=== PATIENT | male | born 1955 | race American Indian/Alaskan Native ===

== ENCOUNTER 2018-10-26 01:43 | Inpatient (IN) | payer MEDICAID ==
[~2018-10-26] VITALS: Ht 185.4 cm; Wt 68.1 kg
[2018-10-26] MEDS ORDERED: aspirin 81mg tab.chew PO ONE (01:50)
[2018-10-26 02:08] LABS: BASOPHILS # (AUTO) 0.1 X10'3 (0-0.2); BASOPHILS % (AUTO) 0.7 % (0-1); EOSINOPHILS # (AUTO) 0.1 X10'3 (0-0.9); EOSINOPHILS % (AUTO) 0.7 % (0-6); HEMATOCRIT 40.1 % (42.0-52.0); HEMOGLOBIN 13.2 g/dl (14.0-17.9); LYMPHOCYTES # (AUTO) 1.2 X10'3 (1.1-4.8); LYMPHOCYTES % (AUTO) 8.7 % (21-51); MEAN PLATELET VOLUME 9.3 FL (7.4-10.4); MONOCYTES # (AUTO) 0.6 X10'3 (0-0.9); MONOCYTES % (AUTO) 4.7 % (2-12); NEUTROPHILS # (AUTO) 11.6 X10'3 (1.8-7.7); NEUTROPHILS % (AUTO) 85.2 % (42-75); PLATELET COUNT 193 X10'3 (140-440); RED BLOOD COUNT 4.27 X10'6 (4.70-6.10); RED CELL DISTRIBUTION WIDTH 16.2 % (11.5-14.5); WHITE BLOOD COUNT 13.6 X10'3 (4.5-11.0)
[2018-10-26] MEDS ORDERED: ondansetron/PF 4mg/2ml inj IV ONE (02:10)
[2018-10-26] MEDS ORDERED: mag hydrox/Alum hydrox/simeth 30ml oral suspension PO ONE (02:10)
[2018-10-26] MEDS ORDERED: LIDOcaine Viscous 15ml cup PO ONE (02:10)
[2018-10-26] MEDS ORDERED: morphine 4 MG/ML inj SYRINge IV ONE ×2 (02:10→03:30)
[2018-10-26 02:23] LABS: GLUCOSE 162 MG/DL (70-104); PARTIAL THROMBOPLASTIN TIME 22 SECONDS (22-32); SODIUM 146 MMOL/L (135-145)
[2018-10-26 02:24] LABS: ALANINE AMINOTRANSFERASE 99 U/L (12-78); ALKALINE PHOSPHATASE 111 IU/L (46-116); ANION GAP 9 (8-16); ASPARTATE AMINO TRANSFERASE 46 U/L (10-37); BILIRUBIN,TOTAL 0.3 MG/DL (0.1-1.0); BLOOD UREA NITROGEN 27 MG/DL (7-18); BUN/CREATININE RATIO 15.3 (5.4-32.0); CALCIUM 8.3 MG/DL (8.5-10.1); CHLORIDE 107 MMOL/L (99-107); CREATININE 1.77 MG/DL (0.60-1.10); POTASSIUM 3.5 MMOL/L (3.5-5.1); TOTAL CARBON DIOXIDE 29.6 MMOL/L (24-32); TOTAL PROTEIN 6.1 G/DL (6.4-8.2); eGFR 39 ML/MIN
[2018-10-26] MEDS ORDERED: iohexol 350MG/ML 100ml bottle IV ONE ×2 (02:40→16:25)
[2018-10-26 02:45] LABS: CLARITY,URINE CLEAR (Clear); COLOR,URINE YELLOW (Yellow); GLUCOSE, URINE NEGATIVE (Neg); KETONES,URINE NEGATIVE (Neg); LEUKOCYTE ESTERASE ,URINE NEGATIVE (Neg); NITRITES, URINE NEGATIVE (Neg); OCCULT BLOOD,URINE NEGATIVE (Neg); PROTEIN,URINE 100 mg/dl (Neg)
[2018-10-26 02:49] LABS: UA COLLECTION TYPE CLN CATCH MIDSTREAM
[2018-10-26 02:51] LABS: BACTERIA,URINE NONE SEEN /HPF (Neg); HYALINE CASTS 0-3 /LPF (NEGATIVE); MUCUS STRANDS FEW /LPF (Neg); RBC,URINE NONE SEEN /HPF (0-2); SQUAMOUS EPITHELIAL CELL,UR NONE SEEN /LPF (FEW); WBC,URINE NONE SEEN /HPF (0-4)
[2018-10-26 02:59] LABS: URINE AMPHETAMINE SCREEN NEGATIVE (Neg); URINE BARBITUATE SCREEN NEGATIVE (Neg); URINE BENZODIAZEPINES SCREEN NEGATIVE (Neg); URINE CANNABINOID SCREEN POSITIVE (Neg); URINE COCAINE SCREEN NEGATIVE (Neg); URINE METHADONE SCREEN NEGATIVE (Neg); URINE OPIATE SCREEN NEGATIVE (Neg); URINE PHENCYCLIDINE SCREEN NEGATIVE (Neg)
[2018-10-26] MEDS ORDERED: heparin 10,000 units/1 ML INJ IV ONE (03:10)
[2018-10-26] MEDS: heparin 25,000 UNIT/250ml bag 250 ML IV SCH ×3 (03:27→18:03)
[2018-10-26] MEDS ORDERED: CefTRIAXone/D5W-Rocephin 1gm 50 ML IV ONE (04:55)
[2018-10-26] MEDS ORDERED: azithromycin/NS 500mg/250ml 250 ML IV ONE (04:55)
--- NOTE | 2018-10-26 05:00 | NUR ---
PT RESTING COMFORTABLY IN BED IV PATENT NO DISTRESS CURRENTLY NO C/O OF CHEST PAIN
[2018-10-26] MEDS ORDERED: pantoprazole 40 MG vial IV ONE (05:15)
[2018-10-26] MEDS ORDERED: magnesium 4gm in 100ml NS 100 ML IV PRN (05:30)
[2018-10-26] MEDS ORDERED: magnesium Cl slow-release 64mg tablet PO PRN (05:30)
[2018-10-26] MEDS ORDERED: potassium Cl 20 mEq SR tablet PO PRN ×2 (05:30)
[2018-10-26] MEDS ORDERED: ondansetron/PF 4mg/2ml inj IV PRN (05:30)
[2018-10-26] MEDS ORDERED: magnesium hydroxide 30ml (MOM) UD suspension PO PRN (05:30)
[2018-10-26] MEDS ORDERED: potassium CL 10mEq/100ml bag 100 ML IV PRN ×2 (05:30)
[2018-10-26] MEDS ORDERED: acetaminophen 325mg tablet PO PRN ×2 (05:30)
[2018-10-26] MEDS ORDERED: mag hydrox/Alum hydrox/simeth 30ml oral suspension PO PRN (05:30)
[2018-10-26] MEDS ORDERED: magnesium 2GM in 50ml NS 50 ML IV PRN (05:30)
[2018-10-26] MEDS ORDERED: nitroGLYCERIN 0.4mg SUBLingual tab SL PRN (05:30)
[2018-10-26 06:00] VITALS: BP 151/101
--- NOTE | 2018-10-26 06:00 | NUR ---
Patient was admitted to PCU at 0555 and noc shift nurse was not able given opportunity to get report and give shift change report. Took over care of patient at 0600 and will go through chart. patient is stable and has no complaints.
--- NOTE | 2018-10-26 06:00 | NUR ---
DR GRAY PAGGED FOR TROPONIN LEVEL OF 2.18
--- NOTE | 2018-10-26 06:12 | NUR ---
Received report from INGRID Marcos. Per DELIVERY CONSULTANTINGRID egan, patient already en route to PCU at 0555. Patient alert and oriented to person, place and time upon arrival to floor. INGRID Almeida escorted patient up to floor on [facility] with patient chart and belongings. Transferred Heparin drip infusing at 800 units/hr per provider order. Stable at this time.
--- NOTE | 2018-10-26 06:24 | NUR ---
Problems reprioritized. Patient report given, questions answered & plan of care reviewed with INGRID Gomez.
[2018-10-26] MEDS ORDERED: FURO20TA4 PO (06:33)
[2018-10-26] MEDS ORDERED: LISI-604 PO (06:33)
[2018-10-26] MEDS ORDERED: ATOR-2 PO (06:33)
[2018-10-26 07:38] LABS: CHOL/HDL RATIO 3.1 (0.00-4.99); CHOLESTEROL 112 MG/DL (0-200); HDL CHOLESTEROL 36 MG/DL (35-60); LDL CHOLESTEROL 67 MG/DL (50-100); TRIGLYCERIDES 30 MG/DL (20-135)
[2018-10-26] MEDS ORDERED: atorvastatin 20mg tablet PO SCH (08:00)
[2018-10-26] MEDS: K and/or MAG REPLACEMENT MC SCH (08:00)
[2018-10-26] MEDS: clopidogrel 75mg tablet PO SCH (08:08)
[2018-10-26] MEDS: carVEDilol 3.125mg tablet PO SCH ×2 (08:08→19:48)
--- NOTE | 2018-10-26 08:10 | NUR ---
Lab reported critical trop of 7.46. Notified Dr Diaz and he asked me to let Lucita Kennedy know. Notified Lucita Kennedy, and there is no change in orders; patient is currently refusing company laborer intervention.
[2018-10-26] MEDS: morphine 2 MG/ML inj. syringe IV PRN (09:49)
--- NOTE | 2018-10-26 10:00 | NUR ---
Paged Dr Tavarez PAGER ID: [phone] MESSAGE: Patricia [phone]. RE Drake Souza [id number]. Correction from prior page I sent, patient did have a 13 beat run of V-tach. Also wanted to clarify parameters about when to order EKG on patient regarding any further chest pain? Thank you
--- NOTE | 2018-10-26 10:24 | NUR ---
Paged Lucita Kennedy PAGER ID: [phone] MESSAGE: Patricia romero [phone]. RE Drake Souza [id number]. Patient is open to cath procedures now and would like to speak with you please
[2018-10-26] MEDS: heparin 10,000 units/1 ML INJ IV PRN (10:39)
--- NOTE | 2018-10-26 10:57 | NUR ---
Patients chest pain has improved from admit. Monitoring patient very closely for any increasing distress
[2018-10-26 11:00] VITALS: BP 91/71
--- NOTE | 2018-10-26 11:00 | NUR ---
Patient was stating that he is "miserable" and is afraid about the healing process regarding laborer tanbark interventions, which is why he is hesitant. I reminded him that he spoke with Lucita Kennedy NP about laborer tanbark, and asked him if he had further questions and wanted to speak to her again and he said yes. Lucita came back and spoke to patient again and went over the risks and benefits of the interventions. Patient said he wanted to go through with it. Waiting for official time and orders from Lucita once she speaks to Dr Chung, but she said it will most likely be early evening tonight and that the patient can have lunch and then be NPO after.
[2018-10-26 15:00] VITALS: BP 124/96
--- NOTE | 2018-10-26 15:13 | NUR ---
Paged Dr Tavarez to notify of critical trop PAGER ID: [phone] MESSAGE: Patricia romero [phone]. Candido Arzate. [id number]. Critical trop reported of 55.53 Addendum: 10/26/18 at 1550 by Patricia Zavala RN No new orders, Dr Tavarez aware that patient is going to geophysical laboratory chief at 1700
[2018-10-26] MEDS ORDERED: midazolam 2 mg/2 ml injection ONE (16:24)
[2018-10-26] MEDS ORDERED: fentaNYL/PF 50MCG/1 ML 2ML syringe ONE (16:25)
[2018-10-26] MEDS ORDERED: LIDOcaine 1% (10mg/ml)w/preservative injection 20ml MDV ONE (16:25)
--- NOTE | 2018-10-26 16:43 | NUR ---
Patient left for [employer] Tester
--- NOTE | 2018-10-26 17:01 | NUR ---
Paged Dr Tavarez PAGER ID: [phone] MESSAGE: Patricia nick [phone]. RE Drake Souza [id number]. 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
--- NOTE | 2018-10-26 18:33 | NUR ---
Problems reprioritized. Patient report given, questions answered & plan of care reviewed with Genie QUINTERO.
[2018-10-26 19:00] VITALS: BP 122/97
[2018-10-26] MEDS: furosemide 20 MG/2 ML vial IV SCH (19:48)
[2018-10-26] MEDS: lisinopril 5mg tablet PO SCH (21:09)
[2018-10-26 23:00] VITALS: BP 115/88
[2018-10-27 01:04] LABS: BASOPHILS # (AUTO) 0.1 X10'3 (0-0.2); BASOPHILS % (AUTO) 1.4 % (0-1); EOSINOPHILS # (AUTO) 0.1 X10'3 (0-0.9); EOSINOPHILS % (AUTO) 0.7 % (0-6); HEMATOCRIT 36.4 % (42.0-52.0); HEMOGLOBIN 12.2 g/dl (14.0-17.9); LYMPHOCYTES # (AUTO) 2.1 X10'3 (1.1-4.8); LYMPHOCYTES % (AUTO) 24.3 % (21-51); MEAN CORPUSCULAR HEMOGLOBIN 30.9 PG (27.0-31.0); MEAN CORPUSCULAR HGB CONC 33.4 g/dL (33.0-36.5); MEAN CORPUSCULAR VOLUME 92.5 FL (78-98); MEAN PLATELET VOLUME 9.3 FL (7.4-10.4); MONOCYTES # (AUTO) 0.8 X10'3 (0-0.9); MONOCYTES % (AUTO) 9.7 % (2-12); NEUTROPHILS # (AUTO) 5.6 X10'3 (1.8-7.7); NEUTROPHILS % (AUTO) 63.9 % (42-75); PLATELET COUNT 242 X10'3 (140-440); RED BLOOD COUNT 3.94 X10'6 (4.70-6.10); RED CELL DISTRIBUTION WIDTH 15.6 % (11.5-14.5); WHITE BLOOD COUNT 8.7 X10'3 (4.5-11.0)
[2018-10-27 01:13] LABS: ALBUMIN 2.5 G/DL (3.4-5.0); ANION GAP 6 (8-16); BLOOD UREA NITROGEN 27 MG/DL (7-18); BUN/CREATININE RATIO 16.8 (5.4-32.0); CALCIUM 8.3 MG/DL (8.5-10.1); CHLORIDE 104 MMOL/L (99-107); CREATININE 1.61 MG/DL (0.60-1.10); GLUCOSE 117 MG/DL (70-104); MAGNESIUM 2.1 MG/DL (1.5-2.4); POTASSIUM 3.9 MMOL/L (3.5-5.1); SODIUM 139 MMOL/L (135-145); TOTAL CARBON DIOXIDE 28.7 MMOL/L (24-32); eGFR 43 ML/MIN
[2018-10-27] MEDS: morphine 2 MG/ML inj. syringe IV PRN ×2 (02:43→16:38)
[2018-10-27 03:00] VITALS: BP 130/59
--- NOTE | 2018-10-27 06:00 | NUR ---
Patient in room PCU 3023. I have received report from INGRID Prescott and had the opportunity to ask questions and assume patient care. Patient is currently resting in bed, bed locked and low, call light in reach, no acute distress, will continue to monitor.
[2018-10-27] MEDS: heparin 10,000 units/1 ML INJ IV PRN (07:14)
[2018-10-27] MEDS: heparin 25,000 UNIT/250ml bag 250 ML IV SCH (07:18)
[2018-10-27] MEDS ORDERED: CefTRIAXone 2gm/D5W 50ml 50 ML IV SCH (08:00)
[2018-10-27] MEDS ORDERED: azithromycin/NS 500mg/250ml 250 ML IV SCH (08:00)
[2018-10-27] MEDS: K and/or MAG REPLACEMENT MC SCH (08:00)
[2018-10-27] MEDS: furosemide 20 MG/2 ML vial IV SCH ×2 (08:19→19:16)
[2018-10-27] MEDS: spironolactone 25 MG tablet PO SCH (08:20)
[2018-10-27] MEDS: carVEDilol 3.125mg tablet PO SCH ×2 (08:20→19:15)
[2018-10-27] MEDS: clopidogrel 75mg tablet PO SCH (08:20)
[2018-10-27] MEDS: aspirin 81mg tab.chew PO SCH (08:20)
[2018-10-27] MEDS: atorvastatin 20mg tablet PO SCH (08:21)
[2018-10-27 11:00] VITALS: BP 114/82
[2018-10-27 15:39] VITALS: BP 143/101
--- NOTE | 2018-10-27 16:31 | NUR ---
PAGER ID: [phone] MESSAGE: INGRID Jane, ext [phone], [phone], Souza, Patient is c/o feeling like he can't breathe and reports a "dull ache" starting in his chest. He is refusing to wear his life vest. He is now on 2L NC to maintain SPO2>90%. desats to upper 80s w/o it.
[2018-10-27 18:00] VITALS: BP 110/79
--- NOTE | 2018-10-27 18:15 | NUR ---
Patient in room PCU 3023. I have received report from Lucinda QUINTERO and had the opportunity to ask questions and assume patient care.
--- NOTE | 2018-10-27 18:28 | NUR ---
Problems reprioritized. Patient report given, questions answered & plan of care reviewed with INGRID Meredith, Patient is currently resting in bed, bed locked and low, call light in reach, stable at shift change.
[2018-10-27] MEDS: lisinopril 5mg tablet PO SCH (20:51)
[2018-10-27 22:00] VITALS: BP 101/48
[2018-10-28] VITALS (7 sets, daily range): BP systolic 114–136; BP diastolic 89–103
[2018-10-28] MEDS: morphine 2 MG/ML inj. syringe IV PRN ×4 (03:14→22:51)
[2018-10-28 05:13] LABS: BASOPHILS % (AUTO) 0.5 % (0-1); EOSINOPHILS % (AUTO) 0.1 % (0-6); HEMATOCRIT 37.4 % (42.0-52.0); HEMOGLOBIN 12.9 g/dl (14.0-17.9); LYMPHOCYTES # (AUTO) 1.3 X10'3 (1.1-4.8); LYMPHOCYTES % (AUTO) 17.5 % (21-51); MEAN CORPUSCULAR HGB CONC 34.4 g/dL (33.0-36.5); MEAN PLATELET VOLUME 9.8 FL (7.4-10.4); MONOCYTES # (AUTO) 0.5 X10'3 (0-0.9); MONOCYTES % (AUTO) 6.8 % (2-12); NEUTROPHILS # (AUTO) 5.5 X10'3 (1.8-7.7); NEUTROPHILS % (AUTO) 75.1 % (42-75); PLATELET COUNT 237 X10'3 (140-440); RED BLOOD COUNT 4.02 X10'6 (4.70-6.10); RED CELL DISTRIBUTION WIDTH 16.1 % (11.5-14.5); WHITE BLOOD COUNT 7.4 X10'3 (4.5-11.0)
[2018-10-28 05:19] LABS: ALBUMIN 2.5 G/DL (3.4-5.0); ANION GAP 8 (8-16); BLOOD UREA NITROGEN 34 MG/DL (7-18); BUN/CREATININE RATIO 21.8 (5.4-32.0); CALCIUM 8.1 MG/DL (8.5-10.1); CHLORIDE 103 MMOL/L (99-107); CREATININE 1.56 MG/DL (0.60-1.10); GLUCOSE 121 MG/DL (70-104); MAGNESIUM 2.1 MG/DL (1.5-2.4); SODIUM 138 MMOL/L (135-145); TOTAL CARBON DIOXIDE 27.2 MMOL/L (24-32); eGFR 45 ML/MIN
--- NOTE | 2018-10-28 06:34 | NUR ---
Patient in room PCU 3023. I have received report from INGRID Meredith and had the opportunity to ask questions and assume patient care. Patient c/o of pain and shortness of breath, lung auscultation clear throughout, VSS, patient requesting morphine, not available for another hour. Patient resting in bed, bed locked and low, call light in reach, will continue to monitor.
--- NOTE | 2018-10-28 06:35 | NUR ---
Problems reprioritized. Patient report given, questions answered & plan of care reviewed with Carson Fragoso.
[2018-10-28] MEDS: K and/or MAG REPLACEMENT MC SCH (08:00)
[2018-10-28] MEDS ORDERED: chlordiazePOXIDE 5mg capsule PO PRN (08:45)
[2018-10-28] MEDS: spironolactone 25 MG tablet PO SCH (08:46)
[2018-10-28] MEDS: furosemide 20 MG/2 ML vial IV SCH ×2 (08:46→20:48)
[2018-10-28] MEDS: aspirin 81mg tab.chew PO SCH (08:47)
[2018-10-28] MEDS: carVEDilol 3.125mg tablet PO SCH ×2 (08:47→20:48)
[2018-10-28] MEDS: atorvastatin 20mg tablet PO SCH (08:47)
[2018-10-28] MEDS: clopidogrel 75mg tablet PO SCH (08:47)
--- NOTE | 2018-10-28 14:22 | NUR ---
Patient refused to work with PT saying he had "just ate" and was too tired. It was explained to the patient that we need to evaluate him to see if we should discharge him and he insisted that he would be fine walking tomorrow without PT. Patient stated he feels like being "so sick" he needs to "rest for days", he also refused to do simple leg exercises because it was too much of an exertion.
--- NOTE | 2018-10-28 14:36 | NUR ---
PAGER ID: [phone] MESSAGE: INGRID Jane, ext [phone], [phone], Minda, patient needs [facility] for discharge meds, can we get DC meds ordered today and keep them in his patient specific since [facility] is not here on weekend? please call
--- NOTE | 2018-10-28 14:37 | NUR ---
wrong doctor paged initially, repaged Dr. Mauro PAGER ID: [phone] MESSAGE: INGRID Jane, ext [phone], [phone], Minda, patient needs [facility] for discharge meds, can we get DC meds ordered today and keep them in his patient specific since [facility] is not here on weekend? please call
--- NOTE | 2018-10-28 18:35 | NUR ---
Patient in room PCU 3029N. I have received report from INGRID Jane and had the opportunity to ask questions and assume patient care. PT is alert and oriented, denies CP, nausea, dizziness. Rated pain 7/10. Pt reciving morphine (see eMAR) q 4 hours. Will continue to monitor
--- NOTE | 2018-10-28 18:38 | NUR ---
Problems reprioritized. Patient report given, questions answered & plan of care reviewed with INGRID Arce. Patient is currently resting in bed, bed locked and low, call light in reach. Reports he does not feel well and is having pain again, Claude will give morphine as ordered.
[2018-10-28] MEDS: lisinopril 5mg tablet PO SCH (20:48)
[2018-10-29 02:00] VITALS: BP 131/96
[2018-10-29 05:20] LABS: ALBUMIN 2.4 G/DL (3.4-5.0); ANION GAP 8 (8-16); BLOOD UREA NITROGEN 40 MG/DL (7-18); BUN/CREATININE RATIO 22.2 (5.4-32.0); CALCIUM 8.4 MG/DL (8.5-10.1); CHLORIDE 101 MMOL/L (99-107); GLUCOSE 132 MG/DL (70-104); MAGNESIUM 2.3 MG/DL (1.5-2.4); SODIUM 137 MMOL/L (135-145); TOTAL CARBON DIOXIDE 27.6 MMOL/L (24-32); eGFR 38 ML/MIN
[2018-10-29 05:22] LABS: POTASSIUM 4.6 MMOL/L (3.5-5.1)
[2018-10-29 05:54] LABS: BASOPHILS % (AUTO) 0.5 % (0-1); EOSINOPHILS % (AUTO) 0.2 % (0-6); HEMATOCRIT 37.1 % (42.0-52.0); HEMOGLOBIN 12.4 g/dl (14.0-17.9); LYMPHOCYTES # (AUTO) 2.1 X10'3 (1.1-4.8); LYMPHOCYTES % (AUTO) 22.5 % (21-51); MEAN CORPUSCULAR HEMOGLOBIN 31.1 PG (27.0-31.0); MEAN CORPUSCULAR HGB CONC 33.3 g/dL (33.0-36.5); MEAN CORPUSCULAR VOLUME 93.6 FL (78-98); MEAN PLATELET VOLUME 10.5 FL (7.4-10.4); MONOCYTES # (AUTO) 0.8 X10'3 (0-0.9); MONOCYTES % (AUTO) 8.2 % (2-12); NEUTROPHILS # (AUTO) 6.3 X10'3 (1.8-7.7); NEUTROPHILS % (AUTO) 68.6 % (42-75); PLATELET COUNT 226 X10'3 (140-440); RED BLOOD COUNT 3.97 X10'6 (4.70-6.10); WHITE BLOOD COUNT 9.2 X10'3 (4.5-11.0)
[2018-10-29] MEDS: morphine 2 MG/ML inj. syringe IV PRN (06:02)
--- NOTE | 2018-10-29 06:15 | NUR ---
Problems reprioritized. Patient report given, questions answered & plan of care reviewed with Lucinda. Pt is stable at shift change
[2018-10-29 07:32] LABS: BURR CELLS 2+; PLATELET ESTIMATE NORMAL; SCHISTOCYTES FEW
[2018-10-29 07:33] LABS: ACANTHOCYTES FEW; POLYCHROMASIA FEW
[2018-10-29] MEDS: K and/or MAG REPLACEMENT MC SCH (08:00)
[2018-10-29] MEDS: furosemide 20 MG/2 ML vial IV SCH (08:00)
[2018-10-29] MEDS ORDERED: FURO-150 PO (08:20)
[2018-10-29] MEDS ORDERED: CLOP75TA35 PO (08:20)
[2018-10-29] MEDS ORDERED: ATOR-2 PO (08:20)
[2018-10-29] MEDS ORDERED: COR3.125T PO (08:20)
[2018-10-29] MEDS ORDERED: ASPI-1265 PO (08:20)
[2018-10-29] MEDS ORDERED: LISI-642 PO (08:20)
[2018-10-29] MEDS: atorvastatin 20mg tablet PO SCH (08:38)
[2018-10-29] MEDS: spironolactone 25 MG tablet PO SCH (08:39)
[2018-10-29] MEDS: carVEDilol 3.125mg tablet PO SCH (08:39)
[2018-10-29] MEDS: aspirin 81mg tab.chew PO SCH (08:39)
[2018-10-29] MEDS: clopidogrel 75mg tablet PO SCH (08:39)
--- NOTE | 2018-10-29 08:45 | NUR ---
Received orders for patient to discharge, gathered patient belongings, patient refused to take his life vest, will contact case mgmt to see what to do with it. prescriptions were faxed to [facility] on [address] per patient request. IV removed, catheter tip intact, hemostasis achieved, telemetry removed, wrist band removed, patient requested a taxi be called and one was called, he was taken down to the lobby by nurse's aid and into cab. Patient stable at time of discharge. Patient was distressed that he was not given anti-anxiety medication in discharge meds, it was edxplained that he needs to follow up with his primary care doctor for those types of medications and he agreed that he would do so. He was also instructed to schedule a follow up appt with his primary care doctor within a week as he did not allow us to schedule a follow up for him. He agreed he would do so.
== END 2018-10-29 08:50 | disposition home or self-care (01) | DRG 190 ==
LOC: ER 01:43 → PCU 3S 06:02 → CMPBEDREQ 06:29
PROVIDERS: ADMIT Hospitalist; ATTEND Internal Medicine
PROC: B32T1ZZ Computerized Tomography (CT Scan) of Left Pulmonary Artery using Low Osmolar Contrast (ICD-10-PCS; principal; 2018-10-26)
PROC: B3201ZZ Computerized Tomography (CT Scan) of Thoracic Aorta using Low Osmolar Contrast (ICD-10-PCS; 2018-10-26)
PROC: B32S1ZZ Computerized Tomography (CT Scan) of Right Pulmonary Artery using Low Osmolar Contrast (ICD-10-PCS; 2018-10-26)
PROC: B4201ZZ Computerized Tomography (CT Scan) of Abdominal Aorta using Low Osmolar Contrast (ICD-10-PCS; 2018-10-26)
PROC: B4241ZZ Computerized Tomography (CT Scan) of Superior Mesenteric Artery using Low Osmolar Contrast (ICD-10-PCS; 2018-10-26)
PROC: B4281ZZ Computerized Tomography (CT Scan) of Bilateral Renal Arteries using Low Osmolar Contrast (ICD-10-PCS; 2018-10-26)
PROC: B4211ZZ Computerized Tomography (CT Scan) of Celiac Artery using Low Osmolar Contrast (ICD-10-PCS; 2018-10-26)
DX: I21.4 Non-ST elevation (NSTEMI) myocardial infarction (principal); I50.21 Acute systolic (congestive) heart failure; N17.9 Acute kidney failure, unspecified; N18.3 Chronic kidney disease, stage 3 (moderate); E78.5 Hyperlipidemia, unspecified; I13.0 Hypertensive heart and chronic kidney disease with heart failure and stage 1 through stage 4 chronic kidney disease, or unspecified chronic kidney disease; F41.9 Anxiety disorder, unspecified; I25.10 Atherosclerotic heart disease of native coronary artery without angina pectoris; F17.210 Nicotine dependence, cigarettes, uncomplicated; J43.2 Centrilobular emphysema; Z79.02 Long term (current) use of antithrombotics/antiplatelets; I25.2 Old myocardial infarction; Z79.899 Other long term (current) drug therapy; Z95.5 Presence of coronary angioplasty implant and graft; Z71.6 Tobacco abuse counseling
CPT/HCPCS: 36415; 71045; 71275; 74174; 80048; 80053; 80061; 80305; 81001; 83735; 83880; 84484; 85025; 85610; 85730; 87081; 93005; 93306; 96365; 96375; 96376; 99285; A6258; C1769; C9113; G0378; J0456; J0696; J1644; J1940; J2001; J2250; J2270; J2405; J3010; Q9967

== ENCOUNTER 2019-04-13 06:49 | Emergency (ER) | payer MEDICAID ==
[~2019-04-13] VITALS: Ht 185.4 cm; Wt 70.5 kg
[~2019-04-13 06:49] MED LIST: ASPI-1265 PO; ATOR-2 PO; CLOP75TA35 PO; COR3.125T PO; LISI-642 PO
[2019-04-13 08:15] LABS: PARTIAL THROMBOPLASTIN TIME 32 SECONDS (22-32)
[2019-04-13 08:17] LABS: ALANINE AMINOTRANSFERASE 22 U/L (12-78); ALBUMIN 1.9 G/DL (3.4-5.0); ALBUMIN/GLOBULIN RATIO 0.7 (1.1-1.5); ALKALINE PHOSPHATASE 120 IU/L (46-116); ANION GAP 6 (8-16); ASPARTATE AMINO TRANSFERASE 22 U/L (10-37); BILIRUBIN,TOTAL 1.1 MG/DL (0.1-1.0); BLOOD UREA NITROGEN 16 MG/DL (7-18); BUN/CREATININE RATIO 13.8 (5.4-32.0); CALCIUM 6.4 MG/DL (8.5-10.1); CHLORIDE 110 MMOL/L (99-107); CREATININE 1.16 MG/DL (0.60-1.10); GLUCOSE 76 MG/DL (70-104); SODIUM 143 MMOL/L (135-145); TOTAL CARBON DIOXIDE 26.7 MMOL/L (24-32); TOTAL PROTEIN 4.8 G/DL (6.4-8.2); eGFR 63 ML/MIN
[2019-04-13 08:19] LABS: POTASSIUM 2.3 MMOL/L (3.5-5.1)
[2019-04-13] MEDS ORDERED: magnesium 2GM in 50ml NS 50 ML IV ONE (08:25)
[2019-04-13] MEDS ORDERED: potassium Cl 10 mEq/100mL bag IV ONE (08:25)
[2019-04-13] MEDS ORDERED: POTASSIUM BICARB 20meq eff tab 20 MEQ TABLET.EFF PO ONE (08:25)
[2019-04-13 08:32] LABS: BASOPHILS % (AUTO) 0.5 % (0-1); EOSINOPHILS # (AUTO) 0.1 X10'3 (0-0.9); EOSINOPHILS % (AUTO) 0.8 % (0-6); HEMATOCRIT 34.3 % (42.0-52.0); HEMOGLOBIN 11.3 g/dl (14.0-17.9); LYMPHOCYTES % (AUTO) 12.9 % (21-51); MEAN CORPUSCULAR HEMOGLOBIN 29.2 PG (27.0-31.0); MEAN CORPUSCULAR HGB CONC 32.9 g/dL (33.0-36.5); MEAN CORPUSCULAR VOLUME 88.6 FL (78-98); MEAN PLATELET VOLUME 9.7 FL (7.4-10.4); NEUTROPHILS # (AUTO) 5.9 X10'3 (1.8-7.7); NEUTROPHILS % (AUTO) 73.8 % (42-75); PLATELET COUNT 136 X10'3 (140-440); RED BLOOD COUNT 3.87 X10'6 (4.70-6.10); RED CELL DISTRIBUTION WIDTH 24.9 % (11.5-14.5)
[2019-04-13 08:45] LABS: MAGNESIUM 1.5 MG/DL (1.5-2.4)
[2019-04-13 09:17] LABS: CLARITY,URINE CLEAR (Clear); COLOR,URINE YELLOW (Yellow); GLUCOSE, URINE NEGATIVE (Neg); KETONES,URINE NEGATIVE (Neg); LEUKOCYTE ESTERASE ,URINE NEGATIVE (Neg); NITRITES, URINE NEGATIVE (Neg); OCCULT BLOOD,URINE NEGATIVE (Neg); PH,URINE 5.5 (4.8-8.0); PROTEIN,URINE >=300 mg/dl (Neg); UROBILINOGEN,URINE >=8.0 E.U/dL (0.2-1.0)
[2019-04-13 09:17] LABS: ANISOCYTOSIS 3+; LARGE PLATELETS FEW; PLATELET ESTIMATE DECREASED
[2019-04-13 09:18] LABS: ACANTHOCYTES 1+; BURR CELLS 1+; POLYCHROMASIA FEW
[2019-04-13 09:20] LABS: UA COLLECTION TYPE VOIDED
[2019-04-13 09:25] LABS: URINE AMPHETAMINE SCREEN NEGATIVE (Neg); URINE BARBITUATE SCREEN NEGATIVE (Neg); URINE BENZODIAZEPINES SCREEN NEGATIVE (Neg); URINE CANNABINOID SCREEN NEGATIVE (Neg); URINE COCAINE SCREEN NEGATIVE (Neg); URINE METHADONE SCREEN NEGATIVE (Neg); URINE OPIATE SCREEN NEGATIVE (Neg); URINE PHENCYCLIDINE SCREEN NEGATIVE (Neg)
[2019-04-13 09:27] LABS: MUCUS STRANDS FEW /LPF (Neg); SQUAMOUS EPITHELIAL CELL,UR FEW /LPF (FEW)
[2019-04-13 09:28] LABS: BACTERIA,URINE 1+ /HPF (Neg); RBC,URINE 0-2 /HPF (0-2); WBC,URINE 0-4 /HPF (0-4)
[2019-04-13 09:35] VITALS: BP 132/62
[2019-04-13 10:36] LABS: ETHANOL < 0.010 GM/DL (0.0-0.010)
--- NOTE | 2019-04-13 10:51 | NUR ---
PT HAS HAD MULTIPLE REQUESTS DURING HIS STAY. PT CONTINUSLY ASKED FOR FOOD AND DRINKS, BLANKENTS, PILLOWS, ETC. PT WAS GIVEN 2 SANDWHICH, OJ, AND GATORAID. REMAINED IN CONTACT WITH DR VARGAS RE: PTS MULTIPLE REQUESTS. PT CONTINUED TO REQUEST TO JUST LET HIM SLEEP. UPON DC PT CONTINUED TO STATE HE WAS TIRED AND JUST WANTS US TO LET HIM SLEEP. EXPLAINED TO PT HE IS D/C AND CAN SLEEP AT HOME. PT CONTINUED TO LAY IN BED AND WANTS TO SLEEP. WITH THE ASSIST OF [place] PT WAS W/C TO BUS STOP AND GIVEN BUS PASS.
== END 2019-04-13 11:14 | disposition home or self-care (01) ==
LOC: ER 06:49
DX: R07.89 Other chest pain (principal); E87.6 Hypokalemia; I48.91 Unspecified atrial fibrillation; I25.10 Atherosclerotic heart disease of native coronary artery without angina pectoris; I11.0 Hypertensive heart disease with heart failure; I50.9 Heart failure, unspecified; I25.2 Old myocardial infarction; F12.90 Cannabis use, unspecified, uncomplicated; F17.200 Nicotine dependence, unspecified, uncomplicated; Z95.5 Presence of coronary angioplasty implant and graft; Z88.1 Allergy status to other antibiotic agents; Z79.82 Long term (current) use of aspirin; Z79.899 Other long term (current) drug therapy
CPT/HCPCS: 36415; 71045; 80053; 80305; 80320; 81001; 83735; 83880; 84484; 85025; 85610; 85730; 93005; 96365; 96366; 99285; J3480